=== PATIENT | male | born 1980 | race Caucasian/White ===

== ENCOUNTER → 2018-06-17 10:07 | Outpatient (CLI) | payer OTHER, SELFPAY ==
[2018-06-14 15:08] VITALS: BMI 41.3
--- NOTE | 2018-06-17 10:08 | RAD_ITS ---
STUDY: X-RAY - LEFT KNEE REASON FOR EXAM: Chronic knee pain, ACL repair years ago. TECHNIQUE: 4 view(s) of the knee. COMPARISON: None. FINDINGS: There are postoperative changes of the distal femur and proximal tibia from anterior cruciate ligament reconstruction. There are very small metallic foreign bodies in the medial proximal tibial diaphysis. Normal proximal tibiofibular articulation. Normal medial femorotibial compartment. Normal lateral femorotibial compartment. Normal patellofemoral articulation. There is mild chondrocalcinosis in the medial meniscus. RAD/Knee 4 or More Views IMPRESSION: Postoperative changes from anterior cruciate ligament reconstruction. Mild chondrocalcinosis in the medial meniscus. Electronically Signed: Valente Murillo MD at 14:00 EDT Tel , Service support ,
== END ==
PROVIDERS: Family Provider Internal Medicine; PCP Internal Medicine; Referring Provider Orthopaedic Surgery; Visit Provider Orthopaedic Surgery
DX: M25.562 Pain in left knee (principal)
CPT/HCPCS: 73564

== ENCOUNTER → 2018-06-18 10:19 | Outpatient (CLI) | payer OTHER, SELFPAY ==
[2018-06-14 15:08] VITALS: BMI 41.3
[2018-06-18 11:34] LABS: Absolute Lymphocyte Count 1.96 X10^3/ul (0.83-4.51); Absolute Neutrophil Count 2.5 X10^3/uL (2.0-7.7); Basophil# 0.01 X10^3/uL; Basophil% 0.2 % (0-1); Eosinophil# 0.08 X10^3/uL; Eosinophils% 1.6 % (0-5); Hematocrit 43.8 % (40-54); Hemoglobin 15.1 g/dl (13.0-16.5); Lymphocyte # 1.96 X10^3/ul (4.0); Lymphocyte % 40.2 % (19-41); Mean Corp Hgb Conc 34.5 g/gl (32-36); Mean Corpuscular Hgb 29.4 pg (27.0-32.0); Mean Corpuscular Volume 85.2 fL (80-94); Monocyte# 0.33 X10^3/uL; Monocyte% 6.8 % (0-10); Neutrophil # 2.49 X10^3/uL (2.7-7.7); Platelet Count 273 K/mm3 (150-450); RBC Distribution Width CV 12.5 % (11.6-14.6); RBC Distribution Width SD 38.4 fl (35.1-43.9); Red Blood Count 5.14 M/mm3 (4.6-6.2); White Blood Count 4.9 K/mm3 (4.4-11.0)
[2018-06-18 11:35] LABS: POSITIVE COUNT NO; POSITIVE DIFFERENTIAL NO; POSITIVE MORPHOLOGY NO
[2018-06-18 11:50] LABS: Hemoglobin A1c 4.8 % (4.2-6.3)
[2018-06-18 12:05] LABS: ALB/GLOB Ratio 1.3 RATIO (0.9-2.4); AST(SGOT) 26 U/L (15-37); Alanine Aminotransfer ALT/SGPT 51 U/L (16-61); Albumin, Serum 4.1 g/dL (3.2-5.0); Alkaline Phosphatase 61 U/L (45-117); Anion Gap 4 (5-15); BUN 15 mg/dL (7-18); BUN/Creat Ratio 14.9 RATIO (10-20); Calcium,Total 9.5 mg/dL (8.5-10.1); Chloride 108 mmol/L (98-107); Cholesterol 164 mg/dL (200); Creatinine, Serum 1.01 mg/dL (0.70-1.30); EST Glomerular Filtration Rate 88 mL/min (>60); Est Glom Filt Rate - Afr Amer 106 mL/min (>60); Globulin 3.2 g/dL (2.2-4.2); Glucose 91 mg/dL (74-106); High Density Lipoprotein 43 mg/dL; Potassium 4.2 mmol/L (3.5-5.1); Protein, Total 7.3 g/dL (6.4-8.2); Sodium Level 141 mmol/L (136-145); Triglycerides 94 mg/dL; Very Low Density Lipoprotein 19 mg/dL (5-40)
== END ==
PROVIDERS: Family Provider Internal Medicine; PCP Internal Medicine; Referring Provider Internal Medicine; Visit Provider Internal Medicine
DX: E66.01 Morbid (severe) obesity due to excess calories (principal); Z68.41 Body mass index [BMI] 40.0-44.9, adult
CPT/HCPCS: 36415; 80053; 80061; 83036; 85025

== ENCOUNTER → 2018-06-29 13:14 | Outpatient (CLI) | payer OTHER, SELFPAY ==
[2018-06-14 15:08] VITALS: BMI 41.3
--- NOTE | 2018-06-29 13:16 | MRI_ITS ---
STUDY: MRI LEFT KNEE REASON FOR EXAM: Left knee pain, prior ACL repair, no specific injury. TECHNIQUE: Standardized fat and water weighted pulse sequences were obtained in all 3 orthogonal planes. COMPARISON: Radiographs 06/17/2018. FINDINGS: Normal medial meniscus. Normal hyaline cartilage of the medial femorotibial compartment. Normal medial femoral condyle and tibial plateau. Normal medial collateral ligamentous complex (MCL). Normal distal semimembranosus, gracilis and semitendinosus tendons. Normal lateral meniscus. Normal hyaline cartilage of the lateral femorotibial compartment. Normal lateral femoral condyle and tibial plateau. Normal proximal tibiofibular articulation. Normal lateral collateral (fibular) ligament. Normal popliteus tendon. Normal biceps femoris tendon. The anterior cruciate ligament graft is intact (series 8 images 11, 12). Normal posterior cruciate ligament (PCL). Normal congruent patellofemoral articulation. There is a small chondral tear of the lateral patella facet near the median ridge (T2 axial image 9). Normal medial and lateral patellar retinaculum. Normal visualized quadriceps tendon. Normal patellar tendon. There is mild postoperative scarring in Hoffa's fat pad. There is a minimal volume of fluid in the knee joint. The soft tissues are unremarkable. There are postoperative changes of the distal femur and proximal tibia from anterior cruciate ligament reconstruction. MRI/Lower Ext Joint Only (Routine) IMPRESSION: Small chondral tear of the lateral patellar facet. Intact anterior cruciate graft. No demonstrated lateral meniscal tear. Electronically Signed: Valente Murillo MD at 9:03 EDT Tel , Service support ,
== END ==
PROVIDERS: Family Provider Internal Medicine; PCP Internal Medicine; Referring Provider Orthopaedic Surgery; Visit Provider Orthopaedic Surgery
DX: S83.282A Other tear of lateral meniscus, current injury, left knee, initial encounter (principal)
CPT/HCPCS: 73721

== ENCOUNTER → 2018-07-09 20:00 | Outpatient (CLI) | payer OTHER, SELFPAY ==
[2018-06-14 15:08] VITALS: BMI 41.3
[2018-07-09] MEDS: Zolpidem Tartrate 5 MG Tablet PO (21:50)
== END ==
PROVIDERS: Family Provider Internal Medicine; PCP Internal Medicine; Referring Provider Internal Medicine; Visit Provider Internal Medicine
DX: G47.10 Hypersomnia, unspecified (principal)
CPT/HCPCS: 95810

== ENCOUNTER → 2018-08-20 20:16 | Outpatient (CLI) | payer OTHER, SELFPAY ==
[2018-07-27 08:40] VITALS: BMI 40.4
[2018-08-20] MEDS: Zolpidem Tartrate 5 MG Tablet PO (21:00)
== END ==
PROVIDERS: Family Provider Internal Medicine; PCP Internal Medicine; Visit Provider Internal Medicine Critical Care Medicine
DX: G47.33 Obstructive sleep apnea (adult) (pediatric) (principal); G47.61 Periodic limb movement disorder
CPT/HCPCS: 95811

== ENCOUNTER → 2018-08-25 12:06 | Outpatient (CLI) | payer OTHER, SELFPAY ==
[2018-07-27 08:40] VITALS: BMI 40.4
== END ==
PROVIDERS: Family Provider Internal Medicine; PCP Internal Medicine; Visit Provider Nurse Practitioner Acute Care
DX: G47.33 Obstructive sleep apnea (adult) (pediatric) (principal)

== ENCOUNTER → 2018-08-26 15:12 | Outpatient (CLI) | payer OTHER, SELFPAY ==
[2018-07-27 08:40] VITALS: BMI 40.4
== END ==
PROVIDERS: Family Provider Internal Medicine; PCP Internal Medicine; Visit Provider Nurse Practitioner Acute Care
DX: G47.33 Obstructive sleep apnea (adult) (pediatric) (principal)

== ENCOUNTER 2018-10-19 02:24 | Emergency (ER) | payer OTHER, SELFPAY ==
[2018-10-19 02:26] VITALS: BP 157/94; PULSE 90; RESP 18; TEMP 37.2; O2SAT 99; BMI 40.8
[2018-10-19 03:04] LABS: Absolute Lymphocyte Count 1.98 X10^3/ul (0.83-4.51); Absolute Neutrophil Count 3.4 X10^3/uL (2.0-7.7); Basophil# 0.01 X10^3/uL; Basophil% 0.2 % (0-1); Eosinophils% 1.7 % (0-5); Hematocrit 39.7 % (40-54); Hemoglobin 13.8 g/dl (13.0-16.5); Lymphocyte # 1.98 X10^3/ul (4.0); Mean Corp Hgb Conc 34.8 g/gl (32-36); Mean Corpuscular Volume 86.3 fL (80-94); Mean Platelet Vol. 9.1 fl (6.2-12.0); Monocyte# 0.31 X10^3/uL; Monocyte% 5.3 % (0-10); Neutrophil % 58.5 % (47-70); POSITIVE COUNT NO; POSITIVE DIFFERENTIAL NO; POSITIVE MORPHOLOGY NO; Platelet Count 254 K/mm3 (150-450); RBC Distribution Width CV 13.1 % (11.6-14.6); RBC Distribution Width SD 41.3 fl (35.1-43.9); White Blood Count 5.8 K/mm3 (4.4-11.0)
[2018-10-19 03:14] LABS: ALB/GLOB Ratio 1.2 RATIO (0.9-2.4); AST(SGOT) 17 U/L (15-37); Alanine Aminotransfer ALT/SGPT 40 U/L (16-61); Alkaline Phosphatase 71 U/L (45-117); Anion Gap 9 (5-15); BUN 17 mg/dL (7-18); BUN/Creat Ratio 15.6 RATIO (10-20); Calcium,Total 9.8 mg/dL (8.5-10.1); Chloride 105 mmol/L (98-107); Creatinine, Serum 1.09 mg/dL (0.70-1.30); EST Glomerular Filtration Rate 80 mL/min (>60); Est Glom Filt Rate - Afr Amer 97 mL/min (>60); Globulin 3.2 g/dL (2.2-4.2); Glucose 122 mg/dL (74-106); Lipase 113 U/L (73-393); Potassium 3.4 mmol/L (3.5-5.1); Protein, Total 7.2 g/dL (6.4-8.2); Sodium Level 143 mmol/L (136-145)
[2018-10-19] MEDS: Ketorolac 30 MG/ML Syringe IV (03:18)
[2018-10-19] MEDS: 0.9% Normal Saline 1,000 ML 999 ML IV (03:18)
--- NOTE | 2018-10-19 03:26 | ED.DCSUM_ITS ---
- ER Visit Summary Date of Service: 10/19/18 Chief Complaint: Abdominal pain History of Present Illness: The patient is a 37 M who presents with abdominal pain. This began 4 hours ago. It was sudden. He describes it as both dull and burning. It severe and isolated to the right upper quadrant. No history of prior similar symptoms. No nausea vomiting diarrhea or fever. Physical Examination: Afebrile vitals normal No distress Moist mucous membranes Heart regular rate and rhythm Lungs are clear Abdomen soft Patient has right upper quadrant abdominal tenderness without guarding without rebound negative Conley's sign Test Results: CBC CMP and lipase are unremarkable. Emergency Department Course and Treatment: Patient was treated here with IV Toradol. He does not have a surgical abdomen. Laboratory studies and vitals are unremarkable. I discussed with him possible etiologies would include biliary colic. He will need further outpatient work-up such as a right upper quadrant ultrasound should symptoms continue however I do not believe there is an indication for emergent imaging. He does understand return for new or worsening symptoms otherwise to follow-up as an outpatient was discharged. Treatment Plan: [] Disposition: Discharge Impression: Right upper quadrant abdominal pain This note was generated with GoChongo dictation software. It may contain incorrect words, spelling, and punctuation that were not noted in review of the chart prior to signing ED Disposition - Plan for ED Patient: Referrals: Shmuel Harrison MD [Primary Care Provider] -
--- NOTE | 2018-10-19 03:28 | ED.DEP ---
ED Disposition - Plan for ED Patient: Instructions: ABDOMINAL PAIN, Unkown Cause, (Male) Referrals: Shmuel Harrison MD [Primary Care Provider] -
[2018-10-19 03:36] VITALS: BP 138/80; PULSE 74; RESP 16; O2SAT 100
== END 2018-10-19 03:37 | disposition home or self-care (01) ==
LOC: ED 03:13
PROVIDERS: Emergency Provider Emergency Medicine; Family Provider Internal Medicine; PCP Internal Medicine
DX: R10.11 Right upper quadrant pain (principal); I10 Essential (primary) hypertension; G43.909 Migraine, unspecified, not intractable, without status migrainosus; Z79.899 Other long term (current) drug therapy
CPT/HCPCS: 80053; 83690; 85025; 96374; 99283; J7030; A4216

== ENCOUNTER → 2018-10-22 08:05 | Outpatient (CLI) | payer OTHER, SELFPAY ==
[2018-10-20 08:15] VITALS: BMI 40.8
--- NOTE | 2018-10-22 08:06 | US_ITS ---
STUDY: ABDOMINAL ULTRASOUND - RIGHT UPPER QUADRANT REASON FOR VISIT: Male, 37 years old. 4 day history of right upper quadrant pain. TECHNIQUE: Ultrasound evaluation of the right upper quadrant was performed with real-time and static munguia-scale imaging. TECHNICAL QUALITY: Adequate. COMPARISON: None. FINDINGS: Liver: The liver is enlarged and measures 20.7 cm. There is increased echogenicity consistent with fatty infiltration. The bile ducts are within normal limits. There is hepatic color flow. The direction of portal flow is hepatopetal. There is no demonstrated mass lesion. Gallbladder: There is a contracted gallbladder. The gallbladder wall is thickened and measures 4.6 mm. There is a positive sonographic Conley's sign. There is no pericholecystic fluid. There are multiple echogenic structures within the gallbladder, consistent with multiple gallstones. Sludge is also seen within the gallbladder lumen. Common Bile Duct (C.B.D.): The common bile duct is dilated and measures 1.8 mm. Pancreas: Normal size of the head, body and tail of the pancreas. There is normal echogenicity of the pancreas. There is no demonstrated pancreatic mass or cyst. Right Kidney: Normal size of the right kidney. The right kidney measures 12.4 cm x 5.8 cm x 5.9 cm. Normal renal cortex. The right cortex measures 1.8 cm. There is no demonstrated renal mass or cyst. There is no right hydronephrosis. US/Abdomen Limited IMPRESSION: Hepatomegaly and fatty infiltration of the liver. Contracted stone filled gallbladder as well as sludge. Thickened gallbladder wall and dilated common bile duct. Electronically Signed: Frank Carrillo, at 12:28 EDT , Service support ,
== END ==
PROVIDERS: Family Provider Internal Medicine; PCP Internal Medicine; Referring Provider Nurse Practitioner Family; Visit Provider Nurse Practitioner Family
DX: R10.11 Right upper quadrant pain (principal)
CPT/HCPCS: 76705

== ENCOUNTER 2018-11-01 15:42 | Observation (INO) | payer OTHER, SELFPAY ==
[2018-10-28 14:44] VITALS: BMI 40.8
[2018-11-01] VITALS (12 sets, daily range): BP systolic 103–141; BP diastolic 51–91; PULSE 62–97; RESP 16–18; TEMP 36.1–37.3; O2SAT 92–100; BMI 40.4; BMI 40.1
--- NOTE | 2018-11-01 10:07 | EKG12_ITS ---
Test Reason : PREOP Blood Pressure : / mmHG Vent. Rate : 068 BPM Atrial Rate : 068 BPM P-R Int : 160 ms QRS Dur : 106 ms QT Int : 388 ms P-R-T Axes : 081 003 004 degrees QTc Int : 412 ms Normal sinus rhythm Normal ECG Confirmed by SHANTEL MIRZA, SABA ([id number]), purchasing expeditor CJ HAYNES ([id number]) on 11/03/2018 10:34:11 AM Referred By: Ryne Seth Confirmed By:SABA FUNES MD
--- NOTE | 2018-11-01 13:47 | PCM.HP.BLA ---
Problem List (1) Chronic cholecystitis Status: Chronic History and Physical Date of Admission: 11/01/18 Intake Vital Signs 10/28/18 Body Mass Index (BMI) 40.8 10/28/18 Height 6 ft 5 in 10/28/18 Weight: 345 lb 10/28/18 Body Mass Index (BMI) 40.8 10/28/18 Blood Pressure 133/84 H 10/28/18 Blood Pressure Location Rt brachial 10/28/18 Blood Pressure Position Sitting 10/28/18 Respiratory Rate 18 10/28/18 Pulse Rate 81 10/28/18 Pulse Source Monitor 10/28/18 Temperature 98.3 F 10/28/18 Pulse Ox 95 10/28/18 Oxygen Delivery Method room air Intake Visit Reasons: Gall Stones & Sludge US 10/22 [facility] Chief Complaint: f/u ER 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 Is patient in pain?: No Allergies Latex, Natural Rubber Allergy (Severe, Verified 10/28/18 14:42) swelling latex Allergy (Verified 10/28/18 14:42) Hives Medications amitriptyline 50 mg tablet 50 mg PO DAILY 09/30/18 [History Confirmed 10/28/18] fluticasone propionate 50 mcg/actuation nasal spray,suspension 1 spray INTRANASAL DAILY 09/30/18 [History Confirmed 10/28/18] galcanezumab-gnlm 120 mg/mL subcutaneous pen injector 120 mg SC QMONTH 09/30/18 [History Confirmed 10/28/18] ipratropium bromide 42 mcg (0.06 %) nasal spray 2 spray INTRANASAL TID-QID 09/30/18 [History Confirmed 10/28/18] levorphanol tartrate 2 mg tablet 2 mg PO Q8H 09/30/18 [History Confirmed 10/28/18] rizatriptan 10 mg tablet See Rx Instructions PO .COMPLEX 09/30/18 [History Confirmed 10/28/18] Amlodipine [Norvasc] 5 mg PO DAILY 10/19/18 [History Confirmed 10/28/18] Levorphanol Tartrate 2 mg PO TID 10/19/18 [History Confirmed 10/28/18] Rizatriptan Benzoate [Rizatriptan] 10 mg PO PRN PRN 10/19/18 [History Confirmed 10/28/18] amlodipine 10 mg tablet 10 mg PO DAILY #90 tab 10/20/18 [Rx Confirmed 10/28/18] hydrocortisone 2.5 % topical cream 1 applic TOPICAL BID #30 g 10/20/18 [Rx Confirmed 10/28/18] ciprofloxacin 500 mg tablet 500 mg PO BID #20 tab 10/28/18 [Rx Confirmed 10/28/18] PFSH Medical History Sleep apnea (Chronic) Chronic migraine (Chronic) Chronic back pain (Chronic) 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) Surgical History History of arthroscopy of right knee (Acute) History of laminectomy (Acute) History of left knee surgery (Acute) History of thumb surgery (Acute) Family History Other Arthritis Asthma Breast cancer CVA (cerebral vascular accident) Depression Diabetes Heart disease Hyperlipemia Kidney disease Myocardial infarction Parkinsons Social History (Updated 10/28/18 @ 15:32 by Ryne Seth MD) Smoking Status: Former smoker quit date: 04/06/98 Tobacco: How many years used: 3 alcohol intake: never substance use type: does not use what type of physical activity do you participate in: walking frequency: daily HPI HPI HPI: JASMYNE GUTIERREZ, is a 37 M who presents to the office today for HPI HPI Surgical H&P: Yes HPI: JASMYNE GUTIERREZ, is a 37 M who presents to the office today for gallstones. Patient has been having right upper quadrant pain intermittently. He says this especially happens with food. He does not report any nausea or vomiting. He is not have any fevers or chills. He said the last week he only had one episode of sharp pain in the right upper quadrant. There is no radiating to the back. ROS General General: No weight change, appetite, fatigue, colon cancer, breast cancer or weakness HEENT HEENT: No difficulty swallowing, eye injury, eye surgery, swollen glands or hoarseness Endo Endocrine: No thyroid disease, diabetes mellitus, thyroid cancer, Hair loss, heat intolerance or cold intolerance Skin Skin: No rash or changing moles Breast Breast: No left breast lump, right breast lump, nipple discharge, breast pain, abnormal mammogram, abnormal US or breast enlargement Musc Musculoskeletal: Yes back problems and arthritis; no rheumatoid arthritis, gout or joint pain Cardio Cardiovascular: Yes high blood pressure; no murmur, pacemaker, heart disease, atrial fibrillation, heart attack, heart stent, palpitations, shortness of breat with exertion or chest pain Psych Psychiatric: No depression, anxiety or hearing voices Resp Respiratory: No shortness of breath, Yes sleep apnea, No cough, No COPD, No asthma, No emphysema, No wheezing Gastro Gastrointestinal: Yes abdominal pain, No nausea or vomiting, No diarrhea, Yes constipation, No blood in stool, No acid reflux, No hemorrhoids, No ulcers, Yes gallbladder problem, No black,tarry stools Ernie Hematologic: No blood thinners, No blood disorders, No bleeding, No anemia, No blood clots Neuro Neurologic: No system reviewed and no additional complaints, except as docu, No as per HPI, No abnormal walking, No abnormal hearing, No abnormal movements, No abnormal speech, No behavioral changes, No burning sensations, No confusion, No seizure-like activity, No unsteadiness, No dizziness, No localized weakness, No frequent falls, No headache(s), No lack of coordination, No loss of vision, No memory loss, Yes numbness, No other visual disturbances, No radiating pain, No restless legs, No sensory deficit, No fainting, Yes tingling, No tremor(s), No weakness, No other Exam Const General: cooperative Orientation: alert, oriented x3 Chest Breast Palpation: No nipple discharge Resp Effort & Inspection: normal respiratory effort Auscultation: clear to auscultation bilaterally Cardio Rate: regular rate Rhythm: regular rhythm Heart Sounds: no murmurs GI Inspection: non-distended Palpation: soft, tender in the RUQ and Conley's sign positive Assessment & Plan Problems 1. Calculus of gallbladder with chronic cholecystitis without obstruction K80.10 Plan The patient had an ultrasound on October 22 which showed thickening of the gallbladder wall as well as cholelithiasis and sludge. Patient on that day had normal white count and normal LFTs. He says that for the last week he has been pain-free except for one episode of right upper quadrant pain. The patient likely has chronic cholecystitis due to the wall thickening and sludge. I will subscribe and ciprofloxacin until surgery is able to be performed. I advised him that in the meantime if he were to have any attacks lasting longer than a half an hour or nausea or vomiting or fevers or chills he should present to the emergency room. I discussed the procedure in detail with the patient. I discussed the risks, benefits, and alternatives of the procedure. I discussed the risks including but not limited to bleeding, infection, injury to surrounding organs such as the liver, bile duct, bowels. I did discuss the possibility of having to convert to an open procedure as well as the possibility that if any injuries occurred this may necessitate further surgery at a tertiary care center. Ryne Seth MD Pager: [facility] [address] [place] [address], [address] [place] [address] Office:
--- NOTE | 2018-11-01 14:05 | GALL_PTH ---
PATIENT: JASMYNE GUTIERREZ LOC: PCU U#:[id number] AGE/SX: 37/M ROOM: [facility] RE11/01/[address]: Dr. Ryne Seth MD : 1980 BED: 1 DIS: 11/02/2018 SPEC #: [id number] RECD: 11/01/18 16:28 STATUS: ELIZ BYERS #: [id number] BETINA: 11/01/18 14:[address]: Ryne Seth DEPT: SURGICAL PATHOLOGY RECD BY: Srinivas Mayers ENTERED: 11/02/18 11:08 SP TYPE: FREDDIE ROMAN DR: Dr. Adrianna Harrison MD Tissues: Gallbladder, NOS Procedures: Surgery Specimen Level III HEADER OPERATION: Laparoscopic, cholecystectomy with intraoperative cholangiography PRE-OP DIAGNOSIS: Calculus of gallbladder with chronic cholecystitis without obstruction K80.10 TISSUE SUBMITTED: Gallbladder MICROSCOPIC DIAGNOSIS Gallbladder: Chronic cholecystitis and cholelithiasis. SJ:nash 11/03/18 MICROSCOPIC DESCRIPTION Slides are reviewed. GROSS DESCRIPTION Received is one container labeled with the patient's name and designated gallbladder. The specimen consists of a gallbladder measuring 9 x 3 x 2.8 cm. The external surface is smooth and glistening. Focally, it is granular, hemorrhagic and contains cautery artifact. The lumen of the gallbladder contains yellow-green mucoid bile and multiple yellow calculi ranging in size 0.2 to 2.2 cm. The mucosa is bile-stained and without any mass lesions. The gallbladder wall averages 0.6 cm in thickness and is free of mass lesions. Buffing And Sueding Machine Operator sections of the gallbladder and the cystic duct are submitted in one cassette. / AM:nash 11/02/18 TC: 3 CPT: 56429
--- NOTE | 2018-11-01 14:10 | RAD_ITS ---
CLINICAL HISTORY: Male, 37 years old. Status post cholecystectomy. PROCEDURE: CHOLANGIOGRAM - interoperative FLUOROSCOPY TIME (if supplied): (0:55) minutes/seconds TECHNIQUE: 3 series of cine images were presented. The first contains 221 images. The second contains 6 images in the third contains 75 images. COMPARISON: CT the abdomen and pelvis, April 15, 2006 abdominal ultrasound, October 22, 2018. FINDINGS: The initial series of images demonstrates cannulization of the cystic duct stump with injection of contrast which fills the intra and extrahepatic ducts. There is no evidence of dilatation stricture or filling defect of the intra or extrahepatic ductal system. There is free spillage of contrast into the duodenum. The second series of images demonstrate injection of contrast with little change from the previous examination. The third set of images again demonstrate injection of contrast was free spillage into the duodenum. Please refer to the operative report for further details. RAD/Cholangiogram/ O R,Initial IMPRESSION: Intraoperative cholangiogram, as above. Electronically Signed: Domingo Krishna DO at 19:48 EDT Tel [phone], Service support ,
[2018-11-01] MEDS: Bupiv/Epi 0.25% 30 ML Vial (15:35)
--- NOTE | 2018-11-01 15:45 | PCM.OPRPT ---
Problem List (1) Chronic cholecystitis Status: Chronic Report of Operation Date of Procedure: 11/01/18 Pre-Operative Diagnosis: Chronic cholecystitis Post-Operative Diagnosis: Same Surgery/Procedure Performed:: Laparoscopic cholecystectomy with cholangiogram Description of Surgical Findings:: Large stone filled gallbladder with inflammation surrounding the gallbladder Specimen's removed: Gallbladder and contents Description of Procedure: After obtaining informed consent patient was brought back to the operating room. General anesthesia was induced. The abdomen was prepped and draped in usual sterile fashion. A small midline incision was made superior to the umbilicus and deepened to the level of fascia. The fascia was elevated and incised. Next the peritoneum was elevated and incised in the same fashion. Finger sweep was performed and the Khalil trocar was placed into the abdomen. The balloon was inflated. The abdomen was inflated to 15 mmHg. Next a camera was introduced into the abdomen and the abdomen was inspected. Next under direct visualization three 5-mm ports were placed one subxiphoid and 2 subcostal. Next the gallbladder was elevated and retracted toward the right shoulder. The peritoneum was stripped from the gallbladder. The gallbladder was very inflamed and adherent to the omentum. There was a small tear in the capsule of the liver medial to the gallbladder fossa from retraction. The infundibulum was located and retracted laterally. Next the triangle of Calot was dissected and the cystic duct and cystic artery were identified. Cholangiograms were performed. The Arellano clamp was used to clamp across the infundibulum and the catheter needle was inserted into the gallbladder. Under fluoroscopy contrast was instilled into the gallbladder and the common duct, cystic duct as well as proximal hepatic ducts were identified. There was good filling of the duodenum. There were no filling defects noted in the common bile duct. The clamp was removed as well as the needle and the infundibulum was grasped once more. Three hemolock clips were placed across the cystic duct. The cystic duct was then divided leaving 2 clips on the stump. The cystic artery was clipped and divided in the same fashion. The hook cautery was then used to take the gallbladder off of the gallbladder bed. Hemostasis was obtained. There was a small bleeding vessel in the infundibular area which was clipped and this stopped bleeding. Gallbladder fossa was irrigated and no active bleeding or bile leakage was noted. Next the camera switched to a 5 mm camera and introduced in the subxiphoid port. An [employer] bag was placed through the umbilical port and the gallbladder was placed into it. The gallbladder was then removed through the umbilical incision. The gallbladder fossa was inspected once more and noted to be hemostatic with no leaking bile. The abdomen was suctioned dry. The umbilical port was removed and using a GraNee needle and 0 Vicryl suture a [id number] suture was placed in the fascia at the umbilical port. The 5 mm ports were removed under direct visualization. The umbilical port site was irrigated local anesthetic was administered to all the incisions. All the incisions were closed with interrupted subcuticular 4-0 Monocryl sutures followed by Steri-Strips and dressings. The patient was awoken and taken to PACU in stable condition. - Admit VTE Documentation VTE Mechan Device Prophylaxis: SCD's
[2018-11-01] MEDS: 0.9% Normal Saline 1,000 ML 100 ML IV (18:17)
--- NOTE | 2018-11-01 18:58 | PN_ITS ---
Progress Note I was called to come see the patient due to intractable pain in PACU. I saw the patient in his hospital room. The patient is complaining of severe pain at the umbilicus. This is just below his large umbilical incision. He also says he is not been able to urinate but feels the urge to go. He is not complaining of any pain in his right upper quadrant. On physical exam his abdomen is soft but very tender at the umbilical incision. The right upper quadrant is soft and nontender. At this time I have low suspicion for bleeding as the patient is not tachycardic and he is not tender in any other areas except for around his incision. He may be having pain at the incision site due to his tolerance for pain medication as he is a chronic pain medicine user. I will keep close eye on his vital signs and if there is any change she will get a CT with IV contrast. Patient understands. Patient also is requesting straight cath so this will be done and this may explain his lower abdominal pain. If a large amount of urine is returned I will start him on Flomax. Ryne Seth MD Pager: [facility] [address] [place] [address], [address] [place] [address] Office:
--- NOTE | 2018-11-01 19:10 | NURSING ---
MD in room spoke about retention - bladder scanned at 549 - straight cathd patient per MD beltran at this time for 750. Pt tolerated well and stated that it improved his pain
[2018-11-01] MEDS: Ondansetron 4 MG/2 ML Vial IV (20:05)
[2018-11-01] MEDS: 0.9% NaCl Peripheral Flush Adult/Peds IV (20:05)
[2018-11-01] MEDS: Tamsulosin HCl 0.4 MG Capsule 0.8 MG PO (20:23)
[2018-11-01] MEDS: proMETHazine 25 MG/ML Syringe 12.5 MG IV (22:07)
[2018-11-01] MEDS: Docusate Sodium 100 MG Capsule PO (22:08)
[2018-11-02] MEDS: 0.9% Normal Saline 1,000 ML 100 ML IV (03:04)
[2018-11-02] MEDS: Morphine 2 MG/ML Syringe IV (03:05)
[2018-11-02 03:45] VITALS: BP 117/69; PULSE 90; RESP 16; TEMP 37.3; O2SAT 92
[2018-11-02] MEDS: 0.9% NaCl Peripheral Flush Adult/Peds IV (05:48)
[2018-11-02] MEDS: proMETHazine 25 MG/ML Syringe 12.5 MG IV (05:48)
[2018-11-02 05:51] VITALS: BP 122/74; PULSE 88; RESP 17; TEMP 37.2; O2SAT 92
[2018-11-02 06:54] LABS: Absolute Lymphocyte Count 0.93 X10^3/uL (0.83-4.51); Absolute Neutrophil Count 7.4 X10^3/uL (2.0-7.7); Eosinophil# 0.01 X10^3/uL; Eosinophils% 0.1 % (0-5); Hematocrit 40.2 % (40-54); Hemoglobin 13.6 g/dL (13.0-16.5); Lymphocyte # 0.93 X10^3/ul (4.0); Lymphocyte % 10.4 % (19-41); Mean Corp Hgb Conc 33.8 g/dL (32-36); Mean Corpuscular Hgb 29.7 pg (27.0-32.0); Mean Corpuscular Volume 87.8 fL (80-94); Mean Platelet Vol. 9.6 fl (6.2-12.0); Monocyte# 0.53 X10^3/uL; Monocyte% 5.9 % (0-10); NRBC Flagged by Analyzer 0 % (0-5); Neutrophil # 7.44 X10^3/uL (2.7-7.7); Neutrophil % 83.2 % (47-70); Platelet Count 263 K/mm3 (150-450); RBC Distribution Width CV 12.8 % (11.6-14.6); RBC Distribution Width SD 40.7 fl (35.1-43.9); Red Blood Count 4.58 M/mm3 (4.6-6.2)
[2018-11-02 07:25] LABS: Anion Gap 9 (5-15); BUN 10 mg/dL (7-18); BUN/Creat Ratio 9.8 RATIO (10-20); Calcium,Total 8.8 mg/dL (8.5-10.1); Chloride 105 mmol/L (98-107); Creatinine, Serum 1.02 mg/dL (0.70-1.30); EST Glomerular Filtration Rate 87 mL/min (>60); Est Glom Filt Rate - Afr Amer 105 mL/min (>60); Estimated Creatinine Clearance 123.75 ml/min; Glucose 101 mg/dL (74-106); Potassium 3.9 mmol/L (3.5-5.1); Sodium Level 141 mmol/L (136-145)
--- NOTE | 2018-11-02 08:42 | PCM.PN.SRG ---
Subjective: Patient had urinary retention which required Varner overnight. He also had vomiting overnight. He is not having any nausea this morning. He reports that pain is improved. - Physical Exam General: Alert, Oriented x3 Lungs: Normal air movement Abdomen: Soft, Non-Distended, Tender - Tender in the umbilical region Vital Signs Temp Pulse Resp BP Pulse Ox 99.0 F 88 17 122/74 H 92 11/02/18 05:51 11/02/18 05:51 11/02/18 05:51 11/02/18 05:51 11/02/18 05:51 Oxygen Flow Rate (L/min) 2 Oxygen Delivery Method Nasal Cannula Weight: 340 lb 6.299 oz Body Mass Index (BMI) 40.1 Intake and Output for Last 24 Hours 10/31/18 11/01/18 11/02/18 23:59 23:59 23:59 Intake Total 2670 / 2670 776 / 776 Output Total 1250 / 1250 1450 / 1450 Balance 1420 / 1420 -674 / -674 Laboratory Tests Past 24 Hrs 11/02/18 11/02/18 06:25 06:25 WBC 9.0 RBC 4.58 L Hgb 13.6 Hct 40.2 MCV 87.8 MCH 29.7 MCHC 33.8 RDW Std Deviation 40.7 RDW Coeff of Yasmine 12.8 Plt Count 263 MPV 9.6 Immature Gran % (Auto) 0.400 Neut % (Auto) 83.2 H Lymph % (Auto) 10.4 L Poinsett % (Auto) 5.9 Eos % (Auto) 0.1 Baso % (Auto) 0.0 Absolute Neuts (auto) 7.4 Absolute Lymphs (auto) 0.93 Nucleated RBC % 0 Sodium 141 Potassium 3.9 Chloride 105 Carbon Dioxide 27.0 Anion Gap 9 BUN 10 Creatinine 1.02 Estim Creat Clear Calc 123.75 Est GFR (MDRD) Af Amer 105 Est GFR (MDRD) Non-Af 87 BUN/Creatinine Ratio 9.8 L Glucose 101 Calcium 8.8 Medical Necessity - Tobacco Use Smoking Status: Former smoker Tobacco Use: Non-smoker Assessment/Plan All Active Problems (Last Reviewed 10/28/18 @ 14:40 by Heidy Mccracken) 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 Patient had a difficult night with nausea and vomiting as well as urinary retention requiring a Varner. He was given Flomax. The patient thinks he will be better if he can get up and walk around. He would like another voiding trial today. Varner will be removed later today and if he cannot urinate it will have to be reinserted and he was notified of this and he was still like to try voiding trial to avoid going home with a Varner. Patient would also like to try regular diet once he is up walking around. 2. Patient's hemoglobin is stable at 13. He is not having any pain or guarding in the rest of the abdomen. His only pain is at the umbilical incision site. 3. Plan for DC once the patient is tolerating a diet and voiding trial has occurred. Ryne Seth MD Pager: [facility] [address] [place] [address] [address] [place] [address] Office:
[2018-11-02] MEDS: Docusate Sodium 100 MG Capsule PO (09:01)
[2018-11-02] MEDS: amLODIPine 10 MG Tablet PO (09:01)
[2018-11-02 09:50] VITALS: BP 136/71; PULSE 93; RESP 16; TEMP 37.4; O2SAT 93
[2018-11-02] MEDS: Acetaminophen 325 MG Tablet 650 MG PO (10:28)
[2018-11-02 15:50] VITALS: BP 122/85; PULSE 92; RESP 18; TEMP 36.9; O2SAT 94
--- NOTE | 2018-11-02 16:03 | DCINST_ITS ---
Discharge Diet: Light diet - advance as tolerated Discharge Activity: Return to Normal Activity, May Not Drive - for 2-3 days or while taking narcotic pain medicataions., May Shower Lifting Restrictions: 20 lbs for 2 weeks Additional Activity Instructions:: Pain medication may cause nausea. You should typically eat light foods as you take your pain medications. Pain medication may also cause constipation. If this is a problem for you, please discuss with your doctor. Call your doctor if your incision/area has: Continuous Slow Oozing, Sudden Increased Bleeding, Increased Pain/ Swelling, Increased Redness, Foul Smelling Discharge, Fever of 101 or Higher Call your doctor if you observe: Fever of 101 or Higher Suture Line Care: Avoid Pulling/Pushing, Avoid Pinching/Bending Remove Dressing in (days):: 1 - Remove clear bandages tomorrow. Remove steri strips in 7-10 days Additional Dressing/Incision Instructions:: Leave operative bandaids on for 2 days. When you remove dressing, leave Steri-Strips on until your follow-up appointment, or until the Steri-Strips fall off on their own. Allergies/Adverse Reactions: Allergies Latex, Natural Rubber Allergy (Severe, Verified 10/29/18 08:38) swelling latex Allergy (Verified 10/29/18 08:38) Hives Medications to take at Discharge amitriptyline 50 mg tablet 50 mg PO QHS 09/30/18 fluticasone propionate 50 mcg/actuation nasal spray,suspension 1 spray INTRANASAL DAILY 09/30/18 galcanezumab-gnlm 120 mg/mL subcutaneous pen injector 120 mg SC QMONTH 09/30/18 ipratropium bromide 42 mcg (0.06 %) nasal spray 2 spray INTRANASAL TID-QID 09/30/18 rizatriptan 10 mg tablet See Rx Instructions PO .COMPLEX PRN 09/30/18 Levorphanol Tartrate 2 mg PO TID 10/19/18 amlodipine 10 mg tablet 10 mg PO DAILY #90 tab 10/20/18 hydrocortisone 2.5 % topical cream 1 applic TOPICAL BID #30 g 10/20/18 ciprofloxacin 500 mg tablet 500 mg PO BID #20 tab 10/28/18 Primary Care Physician: Adrianna Harrison MD [Primary Care Provider] - Test Results: Test results from this visit will be discussed in further detail at your follow- up appointment, if applicable. Please Follow Up With: Ryne Seth MD When: Please call to schedule 2 week follow up appointment. [phone]
== END 2018-11-02 16:04 | disposition home or self-care (01) ==
LOC: PCU 11-02 09:38
PROVIDERS: Admitting Provider Surgery; Family Provider Internal Medicine; PCP Internal Medicine; Referring Provider Surgery; Visit Provider Surgery
PROC: (CPT 47610; principal; 2018-11-01 13:45)
DX: K80.10 Calculus of gallbladder with chronic cholecystitis without obstruction (principal); I10 Essential (primary) hypertension; Z79.899 Other long term (current) drug therapy; Z87.891 Personal history of nicotine dependence; G43.909 Migraine, unspecified, not intractable, without status migrainosus; H91.92 Unspecified hearing loss, left ear; G25.81 Restless legs syndrome; G89.29 Other chronic pain; G47.33 Obstructive sleep apnea (adult) (pediatric)
CPT/HCPCS: 00790; 47563; 36415; 74300; 76000; 80048; 85025; 88304; 93005; 96361; 96374; 96375; 96376; 99218; J7030; J7120; A4216; G0378; G0379; J2405

== ENCOUNTER → 2019-02-24 17:08 | Outpatient (CLI) | payer OTHER, SELFPAY ==
[2018-12-14 06:23] VITALS: BMI 40.8
== END ==
PROVIDERS: Family Provider Internal Medicine; PCP Internal Medicine; Visit Provider Nurse Practitioner Acute Care
DX: G47.33 Obstructive sleep apnea (adult) (pediatric) (principal)

== ENCOUNTER → 2019-06-13 17:22 | Outpatient (CLI) | payer OTHER, SELFPAY ==
[2019-06-03 09:33] VITALS: BMI 40.8
[2019-06-13 18:37] LABS: Amphetamine Urine VISTA NEGATIVE (<1000 ng/mL); Barbiturate Urine VISTA NEGATIVE (< 200 ng/mL); Benzodiazepine Urine VISTA NEGATIVE (< 200 ng/mL); Cocaine Urine VISTA NEGATIVE (< 300 ng/mL); Ecstacy Urine VISTA NEGATIVE (< 500 ng/mL); Methadone Urine VISTA NEGATIVE (< 300 ng/mL); PCP Urine VISTA NEGATIVE (< 25 ng/mL); THC Urine VISTA NEGATIVE (< 50 ng/mL); Vista UDS pH Range 6
== END ==
PROVIDERS: PCP Internal Medicine; Referring Provider Anesthesiology Pain Medicine; Visit Provider Anesthesiology Pain Medicine
DX: F11.20 Opioid dependence, uncomplicated (principal)
CPT/HCPCS: 80307

== ENCOUNTER → 2019-07-01 10:47 | Outpatient (CLI) | payer OTHER, SELFPAY ==
[2019-07-01 10:28] VITALS: BMI 40.8
[2019-07-01 12:35] LABS: ALB/GLOB Ratio 1.2 RATIO (0.9-2.4); AST(SGOT) 15 U/L (15-37); Alanine Aminotransfer ALT/SGPT 28 U/L (16-61); Albumin, Serum 4.2 g/dL (3.2-5.0); Alkaline Phosphatase 69 U/L (45-117); Anion Gap 4 (5-15); BUN 11 mg/dL (7-18); BUN/Creat Ratio 11.2 RATIO (10-20); Calcium,Total 9.6 mg/dL (8.5-10.1); Chloride 103 mmol/L (98-107); Creatinine, Serum 0.98 mg/dL (0.70-1.30); EST Glomerular Filtration Rate 90 mL/min (>60); Est Glom Filt Rate - Afr Amer 109 mL/min (>60); Globulin 3.4 g/dL (2.2-4.2); Glucose 102 mg/dL (74-106); Potassium 3.8 mmol/L (3.5-5.1); Protein, Total 7.6 g/dL (6.4-8.2); Sodium Level 137 mmol/L (136-145)
== END ==
LOC: EPLAB 10:47 → BIMLAB 07-06 12:20
PROVIDERS: PCP Internal Medicine; Visit Provider Internal Medicine
DX: I10 Essential (primary) hypertension (principal)
CPT/HCPCS: 36415; 80053

== ENCOUNTER → 2019-09-21 08:54 | Outpatient (CLI) | payer OTHER, SELFPAY ==
[2019-08-23 10:00] VITALS: BMI 40.8
[2019-09-20 10:10] VITALS: BMI 40.8
--- NOTE | 2019-09-21 15:58 | NEURO ---
NCS and/or EMG Patient Report Ordering Doctor: Adrianna Harrison DATE OF SERVICE: 09/21/19 Jonathan Saldaña is a 38-year-old male presents for electrodiagnostic testing of the left upper limb. He reports weakness and numbness. Electrodiagnostic findings: The left median motor nerve was stimulated, demonstrating prolonged distal latency with reduced amplitude. However maximal stimulation was not given his patient was not able to tolerate the examination. A proximal response was not obtained. The test was then discontinued with no further nerves tested and no needle EMG performed. Electrodiagnostic assessment: This is an incomplete study. Based on the patient's poor tolerance for the examination, no conclusion can be reached.
== END ==
PROVIDERS: PCP Internal Medicine; Referring Provider Internal Medicine; Visit Provider Internal Medicine
DX: M25.532 Pain in left wrist (principal)
CPT/HCPCS: 95907

== ENCOUNTER 2019-10-11 06:46 | Day surgery (SDC) | payer OTHER, SELFPAY ==
[2019-09-20 10:10] VITALS: BMI 40.8
--- NOTE | 2019-09-20 10:19 | HP_ITS ---
Intake Vital Signs 09/20/19 Height 6 ft 5 in 09/20/19 Weight: 344 lb 09/20/19 BMI 40.8 09/20/19 BP 129/85 H 09/20/19 Blood Pressure Location Rt brachial 09/20/19 Position Sitting 09/20/19 Respiration 16 09/20/19 Pulse 77 09/20/19 Pulse Source Monitor 09/20/19 Temp 97.9 F 09/20/19 Temp Source Temporal 09/20/19 Pulse Oximetry (%) 97 09/20/19 Oxygen Delivery Method room air 09/20/19 BMI 40.8 Intake Visit Reasons: CSCOPE/ EGD Chief Complaint: Left Wrist Pain Pill Packer Required: No Is patient in pain?: No Allergies Latex, Natural Rubber Allergy (Severe, Verified 09/20/19 10:11) swelling latex Allergy (Verified 09/20/19 10:11) Hives EMGALITY Allergy (Uncoded 09/20/19 10:11) Rash at site Medications fluticasone propionate 50 mcg/actuation nasal spray,suspension 1 spray INTRANASAL DAILY 09/30/18 [History Confirmed 09/20/19] ipratropium bromide 42 mcg (0.06 %) nasal spray 2 spray INTRANASAL TID-QID 09/30/18 [History Confirmed 09/20/19] rizatriptan 10 mg tablet See Rx Instructions PO .COMPLEX PRN 09/30/18 [History Confirmed 09/20/19] Levorphanol Tartrate 2 mg PO TID 10/19/18 [History Confirmed 09/20/19] hydrocortisone 2.5 % topical cream 1 applic TOPICAL BID #30 g 10/20/18 [Rx Confirmed 09/20/19] pramipexole 0.5 mg tablet 0.5 mg PO QHS #30 tab 03/24/19 [Rx Confirmed 09/20/19] amlodipine 10 mg tablet 10 mg PO DAILY #90 tab 06/10/19 [Rx Confirmed 09/20/19] montelukast 10 mg tablet 10 mg PO QHS #90 tab 06/23/19 [Rx Confirmed 09/20/19] erenumab-aooe 70 mg/mL subcutaneous auto-injector 70 mg SC QMONTH 07/01/19 [History Confirmed 09/20/19] losartan 50 mg tablet 50 mg PO DAILY #90 tab 07/01/19 [Rx Confirmed 09/20/19] methylprednisolone 4 mg tablets in a dose pack See Rx Instructions PO PER PKG DIR #21 tab 08/23/19 [Rx Confirmed 09/20/19] PFSH Medical History Sleep apnea (Chronic) Chronic migraine (Chronic) Chronic back pain (Chronic) 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 Ryne Seth MD) Smoking Status: Former smoker quit date: 04/06/98 Tobacco: How many years used: 3 alcohol intake: never substance use type: does not use what type of physical activity do you participate in: walking frequency: daily HPI HPI HPI: JASMYNE GUTIERREZ, is a 38 M who presents to the office today for HPI HPI Surgical H&P: Yes HPI: JASMYNE GUTIERREZ, is a 38 M who presents to the office today for colonoscopy. The patient had a colonoscopy in 2013 and was found to have a tubular adenoma. Patient was recommended to have a colonoscopy in 5 years and he is 1 year overdue for this. He is not having any abdominal pain or blood in his stool. He has no family history of colon cancer. ROS General General: No weight change, appetite, fatigue, colon cancer, breast cancer or weakness HEENT HEENT: No difficulty swallowing, eye injury, eye surgery, swollen glands or hoarseness Endo Endocrine: No thyroid disease, diabetes mellitus, thyroid cancer, Hair loss, heat intolerance or cold intolerance Skin Skin: No rash or changing moles Musc Musculoskeletal: Yes back problems and arthritis; no rheumatoid arthritis, gout or joint pain Cardio Cardiovascular: Yes high blood pressure; no murmur, pacemaker, heart disease, atrial fibrillation, heart attack, heart stent, palpitations, shortness of breat with exertion or chest pain Psych Psychiatric: No depression, anxiety or hearing voices Resp Respiratory: No shortness of breath, Yes sleep apnea, No cough, No COPD, No asthma, No emphysema, No wheezing Gastro Gastrointestinal: No abdominal pain, No nausea or vomiting, No diarrhea, No constipation, No blood in stool, No acid reflux, No hemorrhoids, No ulcers, No gallbladder problem, No black,tarry stools Ernie Hematologic: No blood thinners, No blood disorders, No bleeding, No anemia, No blood clots Neuro Neurologic: Yes numbness, Yes tingling, No weakness Exam Const General: cooperative Orientation: alert, oriented x3 Resp Effort & Inspection: normal respiratory effort Auscultation: clear to auscultation bilaterally Cardio Rate: regular rate Rhythm: regular rhythm Heart Sounds: no murmurs GI Inspection: non-distended Palpation: soft, nontender Assessment & Plan Problems 1. History of adenomatous polyp of colon Z86.010 Plan The patient has a history of adenomatous polyp of the colon. He is due for colonoscopy. I explained endoscopy in detail to the patient. I explained the risks including but not limited to stroke or heart attack with anesthesia, perforation of the GI tract, bleeding, infection. I explained that any of these could necessitate further emergency surgery. The patient understands and all questions were answered sufficiently. The patient wishes to proceed with procedure. We discussed the current risks associated with COVID-19. While it is understood that there is a community spread of COVID-19, the risk of hai COVID-19 while at [facility] ([facility]) is very low; however, the risk cannot be completely mitigated because of the community spread of the disease. We discussed in detail the risk of exposure to and/or potential harm posed by the COVID-19 virus with having a surgery/procedure at this time versus the risk of delaying the surgery/procedure. It is not possible to know either the risk of delaying the surgery or procedure or chance of getting an infection with perfect accuracy, but a joint decision was made to proceed at this time with the scheduled surgery/procedure as indicated on the consent form. Patient was notified that we will need to comply with any screening or testing [facility] wishes to perform or that surgery may be delayed for any positive results. Ryne Seth MD Pager: [facility] [address] [place] [address], [address] [place] [address] Office: Orders Orders: Colonoscopy Today Z86.010 Coding Level of Care Code Off vis,est,level 3 Diagnoses History of adenomatous polyp of colon Z86.010 09/20/19 1019 <Electronically signed by Ryne grossman MD> Date _ Ryne Seth MD I have re-examined the patient. There are no clinical changes since date of exam.
[2019-09-23 15:35] VITALS: BMI 40.8
[2019-10-11 07:03] VITALS: BP 141/83; PULSE 69; RESP 16; TEMP 36.6; O2SAT 96; BMI 39.1
[2019-10-11] MEDS: Lactated Ringers 1,000 ML 100 ML IV (07:08)
[2019-10-11 08:15] VITALS: BP 111/56; BP 141/83; PULSE 64; RESP 16; TEMP 36.3; O2SAT 97
--- NOTE | 2019-10-11 08:18 | OP.COLON_ITS ---
Patient Name: Jonathan Saldaña Procedure Date: 10/11/2019 7:48 AM Date of : 1980 Age: 38 Procedure: Colonoscopy Indications: Surveillance: Personal history of adenomatous polyps on last colonoscopy 5 years ago Providers: Ryne Seth MD Referring MD: Adrianna Harrison MD Medicines: Monitored Anesthesia Care Patient Profile: This is a 38 year old male. Refer to note in patient chart for documentation of history and physical. Last Colonoscopy: 5 years ago. Complications: No immediate complications. Procedure: Pre-Anesthesia Assessment: - Prior to the procedure, a History and Physical was performed, and patient medications and allergies were reviewed. The patient's tolerance of previous anesthesia was also reviewed. The risks and benefits of the procedure and the sedation options and risks were discussed with the patient. All questions were answered, and informed consent was obtained. Prior Anticoagulants: The patient has taken no previous anticoagulant or antiplatelet agents. After reviewing the risks and benefits, the patient was deemed in satisfactory condition to undergo the procedure. After I obtained informed consent, the scope was passed under direct vision. Throughout the procedure, the patient's blood pressure, pulse, and oxygen saturations were monitored continuously. The colonoscope was introduced through the anus and advanced to the cecum, identified by appendiceal orifice and ileocecal valve. The colonoscopy was performed without difficulty. The patient tolerated the procedure well. The quality of the bowel preparation was good. Scope In: 7:58:09 AM Scope Withdrawal Time 0 hours 6 minutes 54 seconds Scope Out: 8:11:19 AM Total Procedure Duration Time 0 hours 13 minutes 10 seconds Findings: The entire examined colon appeared normal on direct and retroflexion views. Impression: - The entire examined colon is normal on direct and retroflexion views. - No specimens collected. Recommendation: - Discharge patient to home. - Resume previous diet. - Continue present medications. - Repeat colonoscopy in 10 years for screening purposes. Procedure Code(s): --- Professional --- 67593, Colonoscopy, flexible; diagnostic, including collection of specimen(s) by brushing or washing, when performed (separate procedure) Diagnosis Code(s): --- Professional --- Z86.010, Personal history of colonic polyps CPT copyright 2017 [employer]. All rights reserved. The codes documented in this report are preliminary and upon solar designer review may be revised to meet current compliance requirements. Ryne Seth MD 10/11/2019 8:17:40 AM This report has been signed electronically. Number of Addenda: 0 Note Initiated On: 10/11/2019 7:48 AM
--- NOTE | 2019-10-11 08:18 | OP.CCLET_ITS ---
10/11/2019 Adrianna Harrison MD [address] [place] [address] [place] [address] Re : Colonoscopy procedure for Jonathan Saldaña Dear Dr. Harrison This procedure was performed on Friday, October 11, 2019. My impressions and recommendations are as follows: Impressions : - The entire examined colon is normal on direct and retroflexion views. - No specimens collected. Recommendations : - Discharge patient to home. - Resume previous diet. - Continue present medications. - Repeat colonoscopy in 10 years for screening purposes. My findings are described in the full procedure note, which is enclosed. If I can be of further assistance, please feel free to contact me at Doctor phone number(s): , Work: . Sincerely, Ryne Seth MD 10/11/2019 8:17:40 AM This report has been signed electronically.
[2019-10-11 08:20] VITALS: BP 126/60; BP 141/83; PULSE 67; RESP 18; O2SAT 98
[2019-10-11 08:25] VITALS: BP 127/81; BP 141/83; PULSE 61; RESP 18; O2SAT 98
[2019-10-11 08:33] VITALS: BP 121/74; BP 141/83; PULSE 54; RESP 18; TEMP 36.4; O2SAT 99
[2019-10-11 08:47] VITALS: BP 141/83
== END 2019-10-11 08:50 | disposition home or self-care (01) ==
LOC: EN 06:48 → AC 06:48
PROVIDERS: Anesthesiology; PCP Internal Medicine; Referring Provider Internal Medicine; Visit Provider Surgery
PROC: 0DJD8ZZ Inspection of Lower Intestinal Tract, Via Natural or Artificial Opening Endoscopic (ICD-10-PCS; CPT 45378; principal; 2019-10-11 07:55)
DX: Z12.11 Encounter for screening for malignant neoplasm of colon (principal); Z86.010 Personal history of colon polyps; Z87.19 Personal history of other diseases of the digestive system; Z87.891 Personal history of nicotine dependence; Z91.040 Latex allergy status; G47.30 Sleep apnea, unspecified; M54.9 Dorsalgia, unspecified; G89.29 Other chronic pain; H91.92 Unspecified hearing loss, left ear; G43.909 Migraine, unspecified, not intractable, without status migrainosus
CPT/HCPCS: 45378; 87635; G2023; J7120; J2405; U0003

== ENCOUNTER → 2019-10-19 06:27 | Outpatient (CLI) | payer OTHER, SELFPAY ==
[2019-10-11 07:03] VITALS: BMI 39.1
--- NOTE | 2019-10-19 14:18 | NEURO ---
NCS and/or EMG Patient Report Ordering Doctor: Dmitry Polk DATE OF SERVICE: 10/19/19 Jonathan Saldaña presents with complaints of numbness and weakness in the left hand for the past several months. Electrodiagnostic findings: Left median motor nerve demonstrates prolonged distal latency with normal amplitude and reduced conduction velocity. Left ulnar motor responses within normal limits. Prolonged left median F-wave. Prolonged left median sensory latency at the wrist. Normal left ulnar and radial sensory responses. Needle EMG testing reveals no evidence of denervation in any muscles tested in the left upper limb. Motor unit action potentials were normal amplitude and duration. Electrodiagnostic impression: This is an abnormal study in the left upper limb. 1. Electrodiagnostic findings demonstrate left-sided median mononeuropathy. This consistent with a mild left carpal tunnel syndrome.
== END ==
PROVIDERS: PCP Internal Medicine; Referring Provider Internal Medicine; Visit Provider Internal Medicine
DX: R29.898 Other symptoms and signs involving the musculoskeletal system (principal); M25.532 Pain in left wrist
CPT/HCPCS: 95886; 95909

== ENCOUNTER → 2019-12-02 08:08 | Outpatient (CLI) | payer OTHER, SELFPAY ==
--- NOTE | 2019-12-02 08:09 | RAD_ITS ---
STUDY: X-RAY - LEFT WRIST REASON FOR EXAM: Male, 38 years old. WRIST PAIN, NO TRAUMA TECHNIQUE: 3 view(s) of the wrist were obtained. COMPARISON: None. FINDINGS: Normal visualized distal radius and ulna. Normal radiocarpal articulation. Normal distal radioulnar articulation. Normal carpal bones. Normal carpal articulations. Normal carpometacarpal articulation of the thumb. Normal second through fifth carpometacarpal articulations. Normal visualized metacarpal bones. The soft tissue structures are unremarkable. RAD/Wrist min 3 Views IMPRESSION: Normal x-ray examination of the wrist. Electronically Signed: Frank Carrillo, at 13:57 EDT , Service support ,
== END ==
PROVIDERS: PCP Internal Medicine; Referring Provider Orthopaedic Surgery; Visit Provider Orthopaedic Surgery
DX: G56.02 Carpal tunnel syndrome, left upper limb (principal)
CPT/HCPCS: 73110

== ENCOUNTER → 2020-01-24 15:38 | Outpatient (CLI) | payer OTHER, SELFPAY ==
[2019-12-30 14:58] VITALS: BMI 39.1
--- NOTE | 2020-01-24 16:00 | MRI_ITS ---
STUDY: MRI LUMBAR SPINE WITHOUT CONTRAST REASON FOR EXAM: Male, 39 years old. BACK AND BILAT LEG PAIN, HX PRIOR LAMINECTOMY TECHNIQUE: Standardized fat and water weighted pulse sequences were obtained in the sagittal and axial planes. COMPARISON: 03/28/2008 FINDINGS: T12-L1: Disc desiccation with loss of disc height but no disc protrusion, spinal stenosis, or neural foraminal stenosis. Normal lumbar lordosis. Mild levoscoliosis centered at L2/L3. Normal conus medullaris that terminates at the T12/L1. L1-2: Disc desiccation and loss of disc height but no disc protrusion, spinal stenosis, or neural foraminal stenosis. L2-3: Status post posterior decompression. No change in the mild broad disc protrusion which produces mild spinal stenosis and mild bilateral neural foraminal stenosis. L3-4: Status post posterior decompression. No change in the mild broad disc protrusion which produces mild spinal stenosis and mild bilateral neural foraminal stenosis. L4-5: Status post posterior decompression. Mild left facet hypertrophy. No change in the mild broad disc protrusion which produces mild spinal stenosis but moderate bilateral neural foraminal stenosis with abutment of the exiting L4 nerve roots bilaterally. L5-S1: Normal endplates. Normal disc height, hydration and morphology. Normal bilateral facet joints. Normal central canal and bilateral lateral recesses. Normal bilateral intervertebral neural foramina. Normal visualized sacral ala. Normal visualized paraspinous soft tissue structures. MRI/Spine Lumbar (Routine) IMPRESSION: No change from 03/28/2008. Electronically Signed: Kevin Cronin MD at 17:13 EDT Tel , Service support ,
== END ==
PROVIDERS: PCP Internal Medicine; Referring Provider Anesthesiology Pain Medicine; Visit Provider Anesthesiology Pain Medicine
DX: M54.9 Dorsalgia, unspecified (principal); M79.606 Pain in leg, unspecified
CPT/HCPCS: 72148

== ENCOUNTER → 2020-03-07 15:54 | Outpatient (CLI) | payer OTHER, SELFPAY ==
[2020-03-07 17:41] LABS: Amphetamine Urine VISTA NEGATIVE (<1000 ng/mL); Barbiturate Urine VISTA NEGATIVE (< 200 ng/mL); Benzodiazepine Urine VISTA NEGATIVE (< 200 ng/mL); Cocaine Urine VISTA NEGATIVE (< 300 ng/mL); Ecstacy Urine VISTA NEGATIVE (< 500 ng/mL); Methadone Urine VISTA NEGATIVE (< 300 ng/mL); PCP Urine VISTA NEGATIVE (< 25 ng/mL); THC Urine VISTA NEGATIVE (< 50 ng/mL); Vista UDS pH Range 5
== END ==
PROVIDERS: PCP Internal Medicine; Referring Provider Anesthesiology Pain Medicine; Visit Provider Anesthesiology Pain Medicine
DX: F11.20 Opioid dependence, uncomplicated (principal)
CPT/HCPCS: 80307

== ENCOUNTER 2020-03-13 17:09 | Emergency (ER) | payer OTHER, SELFPAY ==
[2020-03-13 16:40] VITALS: BMI 39.6
[2020-03-13 17:10] VITALS: BP 161/91; PULSE 81; RESP 16; TEMP 37.4; O2SAT 99; BMI 39.6
--- NOTE | 2020-03-13 18:08 | US_ITS ---
STUDY: VENOUS DOPPLER ULTRASOUND - LEFT LOWER EXTREMITY REASON FOR EXAM: Male, 39 years old. POSTERIOR LEFT CALF PAIN TECHNIQUE: Ultrasound evaluation of the deep vein system to include cooper-scale imaging and compression was performed. Cooper-scale imaging and Doppler sonographic evaluation, including duplex spectral analysis and qualitative color flow sonography, was performed. COMPARISON: None. FINDINGS: Common Femoral Vein: Normal compression, spontaneity and augmentation. Normal color Doppler. Common Femoral Vein/Greater Saphenous Junction: Normal compression, spontaneity and augmentation. Normal color Doppler. Femoral Proximal: Normal compression, spontaneity and augmentation. Normal color Doppler. Femoral Middle: Normal compression, spontaneity and augmentation. Normal color Doppler. Femoral Distal: Normal compression, spontaneity and augmentation. Normal color Doppler. Popliteal Vein: Normal compression, spontaneity and augmentation. Normal color Doppler. Posterior Tibial Vein: Normal compression, spontaneity and augmentation. Normal color Doppler. Peroneal Vein: Normal compression, spontaneity and augmentation. Normal color Doppler. US/Venous Duplex Imag/Limited/Uni IMPRESSION: Normal venous Doppler ultrasound of the left lower extremity. Electronically Signed: Zbigniew Burris, at 20:00 EST Tel , Service support ,
--- NOTE | 2020-03-13 19:21 | ED.VIS.GEN ---
History of Present Illness Chief Complaint: Lower Extremity Injury Narrative: Patient presents with left lower extremity pain that started yesterday and now somewhat improved. He has calf pain mostly. It is worse when he moves his cast or tries to stretch it or squeezes his calf. No known injury. He has no chest pain or shortness of breath no fever or chills. No rash in that region. Past Medical History - Allergies and Home Meds Allergies/Adverse Reactions: Allergies Latex, Natural Rubber Allergy (Severe, Verified 03/13/20 17:10) swelling latex Allergy (Verified 03/13/20 17:10) Hives EMGALITY Allergy (Uncoded 03/13/20 17:10) Rash at site Will be taking with Benadryl Primary Care Physician: Adrianna Harrison MD [Primary Care Provider] - Past Medical History: - - Hypertension Smoking Status: Former smoker Review of Systems All systems negative except as indicated General: Denies: Chills, Fever Cardiovascular: Denies: Chest pain, Palpitations Respiratory: Denies: Dyspnea, Cough Gastrointestinal: Denies: Abdominal pain, Nausea, Vomiting Musculoskeletal: Denies: Myalgias, Arthralgias Skin: Denies: Rash, Abscess Neurological: Denies: Headache, Weakness Psych: Denies: Depression Hematologic: Denies: Easy bruising, Easy bleeding Physical Exam Vital Signs/Narrative: Vital Signs Temp Pulse Resp BP Pulse Ox 03/13/20 17:10 99.4 F H 81 16 161/91 H 99 General: Well nourished, Well developed Head: Normocephalic, Atraumatic ENT: Moist mucous membranes Cardiovascular: Regular rate, Regular rhythm Respiratory: No distress, CTA bilaterally Abdomen: Soft, Nontender, Nondistended Back: Nontender, Normal Inspection. Negative for: CVA tenderness Extremities: - - There is tenderness over the left calf region, there is some muscle spasm in that region. He has no significant lower extremity edema. Pulses are intact extremity is warm. Skin: Normal color Psychological: Normal affect Diagnostic/Tx/Re-eval - Medical Decision Making Venous ultrasound is negative for DVT. This is likely a calf strain. We will treat as such. Patient was reassured. ED Disposition - Plan for ED Patient: Disposition: LEFT WITHOUT BEING SEEN Diagnosis: Pain of left calf Instructions: Treating?Strains and Sprains Referrals: Adrianna Harrison MD [Primary Care Provider] - 2 Days
[2020-03-13 19:25] VITALS: PULSE 82; RESP 15; O2SAT 97
[2020-03-13 19:29] VITALS: BP 130/95; PULSE 77; RESP 16; O2SAT 96
== END 2020-03-13 19:33 | disposition home or self-care (01) ==
PROVIDERS: Emergency Provider Emergency Medicine; PCP Internal Medicine
DX: M79.662 Pain in left lower leg (principal); I10 Essential (primary) hypertension; Z87.891 Personal history of nicotine dependence; Z91.040 Latex allergy status; Z88.8 Allergy status to other drugs, medicaments and biological substances
CPT/HCPCS: 93971; 99282

== ENCOUNTER 2020-04-10 05:54 | Day surgery (SDC) | payer OTHER, SELFPAY ==
[2020-03-26 15:18] VITALS: BMI 39.6
[2020-04-10 06:33] VITALS: BP 148/92; PULSE 61; RESP 16; TEMP 36.5; O2SAT 100; BMI 39.9
[2020-04-10] MEDS: Lactated Ringers 1,000 ML 100 ML IV (06:49)
--- NOTE | 2020-04-10 07:11 | HP.PCM_ITS ---
History and Physical Date of Admission: 04/10/20 Intake Intake Visit Reasons: hand pain Chief Complaint: Left ear pain Allergies Latex, Natural Rubber Allergy (Severe, Verified 02/07/20 10:54) swelling latex Allergy (Verified 02/07/20 10:54) Hives EMGALITY Allergy (Uncoded 02/07/20 10:54) Rash at site [facility] Medical History Sleep apnea (Chronic) Chronic migraine (Chronic) Chronic back pain (Chronic) 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) Surgical History Hx of cholecystectomy (Acute) History of left knee surgery (Acute) History of arthroscopy of right knee (Acute) History of laminectomy (Acute) History of thumb surgery (Acute) Family History Mother Hypertension High cholesterol Father Kidney disease Asthma Other Arthritis Breast cancer CVA (cerebral vascular accident) Depression Diabetes Heart disease Hyperlipemia Myocardial infarction Parkinsons Social History (Updated 03/05/20 @ 13:57 by Mehdi VALLE, PA) Smoking Status: Former smoker quit date: 04/06/98 Tobacco: How many years used: 3 alcohol intake: never substance use type: does not use what type of physical activity do you participate in: walking frequency: daily HPI hand pain: Details: Parts of this documentation were recorded by a scribe, this documentation accurately reflects the service provided and the decisions made by me, TORI Hamilton 03/05/20 1124. JASMYNE GUTIERREZ is a 39 year old M here today for left carpal tunnel, sign consent, surgery not scheduled yet. Patient had an injection on 12/02/2019 which lasted until just this month. Patient's last x-ray 12/02/2019. Patient would like to proceed with surgery d/t his spouse being healed from surgery. ROS Musc Reports system reviewed and no additional complaints, except as docu, Reports joint pain, Denies joint swelling, Reports numbness, Reports stiffness, Reports tingling Skin/Breast Denies system reviewed and no additional complaints, except as docu, Denies dry skin, Denies redness, Denies lesions, Denies new lesions, Denies non-healing lesions, Denies itching, Denies rash, Denies skin ulcer, Denies sores, Denies unusual bruising, Denies wounds Neuro Yes system reviewed and no additional complaints, except as docu, Yes numbness, Yes radiating pain, Yes tingling Ortho Exam General General: Yes no acute distress Right Wrist/Hand Skin/Wound: No Swelling, No Ecchymosis Left Wrist/Hand Skin/Wound: No Swelling, No Ecchymosis, Yes capillary refill normal, No erythema Left Wrist: Yes ROM-Extension 0-60, Yes ROM-Flexion 0-80, Yes ROM-Pronation 0- 80, Yes ROM-Supination 0-90, Yes Durken's Test and Yes Tinel's; no Loki's Test or no Thenar Atrophy Sensation: Radial: I, Ulnar: I, Median: D WRIST: No abnormalities on inspection of the left wrist. No localized or generalized swelling and no other skin changes. Patient is full range of motion of the wrist. He does have positive Tinel's and positive Durkan signs indicative of carpal tunnel. There is decreased sensation to light touch in the median nerve distribution. He has normal distal radial pulses normal capillary refill. Assessment & Plan Problems 1. Carpal tunnel syndrome of left wrist G56.02 Plan Patient presents the office today for left carpal tunnel syndrome. Patient has had carpal tunnel symptoms for quite a long time. He did have an injection back in November which she states was very effective until approximately 1 to 2 weeks ago where his symptoms of pain and paresthesias have returned and are worsening again. Patient did talk to the surgeon previously and received the injection to get him by while his recover from surgery and is now ready to proceed with surgical intervention. Risks and benefits of the surgery were discussed with patient including but not limited to blood loss, blood clot, infection, neurovascular injury, failure of procedure, loss of limb or loss of life from anesthesia. We did discuss COVID-19 risks which screening will not be part of his presurgery testing. All of his questions regarding the surgery were discussed including follow-up/rehabilitation. Patient also saw the surgeon today for any further information/questions or concerns. Patient can follow-up in our office in the meantime with any questions or concerns and we will see him as indicated postoperatively. This note was generated with [employer] software. It may contain incorrect words, spelling, and punctuation that were not noted in checking the note before signing. Coding Level of Care Code Off vis,est,level 3 Diagnoses Carpal tunnel syndrome of left wrist G56.02 I have re-examined the patient. There are no clinical changes since date of exam Procedure Criteria Procedure Type: Elective COVID Risk Discussion: The surgeon/proceduralist and patient have discussed in detail the risk of exposure to and/or potential harm posed by the COVID-19 virus with having a surgery/procedure at this time versus the risk of delaying the surgery/procedure. It is not possible to know either the risk of delaying the surgery or procedure or chance of getting an infection with perfect accuracy, but a joint decision was made between the patient and the surgeon/proceduralist to proceed at this time with the scheduled surgery/procedure as indicated on the consent form.
[2020-04-10] MEDS: Cefazolin 2 GM in 0.9% Normal Saline 100 ML IV (07:12)
--- NOTE | 2020-04-10 07:15 | DCINST_ITS ---
Discharge Diet: No Restrictions Keep extremity elevated above heart level: Operative Extremity Call your doctor if you observe: Shortness of breath, Chest pain Additional Instructions: Ice and elevate operative extremity next 72 hours. Keep dressing on clean and dry for 48 hours then may remove and allow warm soapy water to rinse over incision but do not submerge until sutures are out. Then apply bandaid over incision and change daily. encourage finger range of motion. Not lift more than 1/2 pound. Allergies/Adverse Reactions: Allergies Latex, Natural Rubber Allergy (Severe, Verified 04/10/20 06:29) swelling latex Allergy (Verified 04/10/20 06:29) Hives EMGALITY Allergy (Uncoded 04/10/20 06:29) Rash at site Will be taking with Benadryl Medications to take at Discharge fluticasone propionate 50 mcg/actuation nasal spray,suspension 1 spray INTRANASAL DAILY 09/30/18 ipratropium bromide 42 mcg (0.06 %) nasal spray 2 spray INTRANASAL TID-QID 09/30/18 Levorphanol Tartrate 2 mg PO 4X/DAY 10/19/18 erenumab-aooe 70 mg/mL subcutaneous auto-injector 70 mg SC QMONTH 07/01/19 lorazepam 1 mg tablet 1 mg PO BID PRN #3 tab 10/17/19 montelukast 10 mg tablet 10 mg PO QHS #90 tab 12/30/19 Amlodipine Besylate [Norvasc] 10 mg PO DAILY 04/02/20 Hydrocodone Bitart/Apap 5-325 [[place] 5MG-325MG] 1 - 2 tablet PO Q4H PRN PRN 5 Days #20 tablet 04/10/20 Losartan Potassium 50 mg PO DAILY 04/10/20 The following prescriptions were given: Hydrocodone Bitart/Apap 5-325 [[place] 5MG-325MG] 1 - 2 tablet PO Q4H PRN PRN 5 Days #20 tablet PRN Reason: Pain Score 6-10 Transmission Status: Sent to [facility] Primary Care Physician: Adrianna Harrison MD [Primary Care Provider] - Test Results: Test results from this visit will be discussed in further detail at your follow- up appointment, if applicable. Please Follow Up With: Dorian Aguilar DO - 2 weeks
[2020-04-10] MEDS: Bupiv/Epi 0.5% Mpf 30 ML Vial (07:30)
--- NOTE | 2020-04-10 07:34 | PCM.OPRPT ---
Report of Operation Date of Procedure: 04/10/20 Description of Surgical Findings:: Preoperative diagnosis; left carpal tunnel syndrome Postoperative diagnosis; same Procedure: Left open carpal tunnel release Anesthesia: Local with MAC Tourniquet time; 10 minutes 250 mm Hg Complications: None Indication for procedure; This is a 39-year-old male with long-standing symptoms consistent with carpal tunnel syndrome the patient did have electrodiagnostic evidence of this and has failed conservative treatment. Risks benefits and alternatives were reviewed including risks of bleeding infection nerve artery tissue damage need for further surgery and continued pain and symptoms, hypersensitivity to scar and Pillar pain. Procedure; The patient was met in the preoperative holding area the operative extremity was identified by both patient and physician and was marked the patient was met by anesthesia and brought back to the operating room and transferred to the operating table in the supine position. Aanesthesia was started. A well-padded tourniquet was placed on the operative upper extremity. The patient was prepped and draped in the usual sterile fashion. A timeout was called to ensure the proper patient procedure and extremity were being contemplated. 0.5 percent Marcaine with epinephrine was injected into the incisional area. An Esmarch was used to exsanguinate the extremity. The tourniquet was inflated to 250 mmHg. A midline incision was made with a 15 blade scalpel between the thenar and hypothenar eminence. This was carried down through the skin and subcutaneous tissue. Carrol retractors were then used, a deep blade scalpel was used to make a deep incision in the palmar aponeurosis. The carrol retractors were then placed deep to this and the transverse carpal ligament was identified a perforation was made with a scalpel and a Littler scissors were used to complete the release of the transverse carpal ligament distally under direct visualization with the tips facing ulnarly until the perivascular fat was reached. Then turning our attention proximally using a tension slide technique the proximal extent of the transverse carpal ligament was released . There was noted to be hourglass configuration to the median nerve and hypertrophy of the transverse carpal ligament without other findings. The wound was thoroughly irrigated and was closed with 4-0 prolene vertical mattress stitches. Dressing was applied in the form of xeroform 4 x 4, web roll and an gilberto wrap. Tourniquet was let down there is no intraoperative complications patient tolerated the procedure well and was transferred to the PACU. All counts were correct.
[2020-04-10 07:50] VITALS: BP 108/68; BP 122/70; PULSE 77; RESP 16; TEMP 36.2; O2SAT 93
[2020-04-10 07:55] VITALS: BP 109/70; BP 122/70; PULSE 60; RESP 16; O2SAT 94
[2020-04-10 08:00] VITALS: BP 114/70; BP 122/70; PULSE 59; RESP 16; O2SAT 94
[2020-04-10 08:08] VITALS: BP 112/76; BP 122/70; PULSE 64; RESP 16; TEMP 36.4; O2SAT 94
[2020-04-10 08:33] VITALS: BP 122/70
== END 2020-04-10 09:04 | disposition home or self-care (01) ==
LOC: SDC 05:54 → AC 05:56
PROVIDERS: PCP Internal Medicine; Referring Provider Orthopaedic Surgery; Visit Provider Orthopaedic Surgery
PROC: (CPT 64721; principal; 2020-04-10 07:00)
DX: G56.02 Carpal tunnel syndrome, left upper limb (principal); Z87.891 Personal history of nicotine dependence; Z91.040 Latex allergy status; M54.9 Dorsalgia, unspecified; G89.29 Other chronic pain; G47.30 Sleep apnea, unspecified; Z90.49 Acquired absence of other specified parts of digestive tract
CPT/HCPCS: 64721; 87426; C9803; J7120; J2405

== ENCOUNTER → 2020-08-02 21:00 | Outpatient (CLI) | payer OTHER, SELFPAY ==
[2020-07-11 15:11] VITALS: BMI 41.0
[2020-08-02] MEDS: Zolpidem Tartrate 5 MG Tablet PO (21:30)
== END ==
PROVIDERS: PCP Internal Medicine; Visit Provider Internal Medicine Critical Care Medicine
DX: G47.33 Obstructive sleep apnea (adult) (pediatric) (principal)
CPT/HCPCS: 95811

== ENCOUNTER 2020-10-19 07:19 | Day surgery (SDC) | payer OTHER, SELFPAY ==
[2020-07-11 15:11] VITALS: BMI 41.0
[2020-10-10 15:23] VITALS: BMI 41.0
[2020-10-19] VITALS (9 sets, daily range): BP systolic 113–139; BP diastolic 61–95; PULSE 58–67; RESP 14–16; TEMP 35.9–36.2; O2SAT 91–94; BMI 38.8
[2020-10-19] MEDS: Lactated Ringers 1,000 ML 100 ML IV (07:30)
--- NOTE | 2020-10-19 08:45 | SEP_PTH ---
PATIENT: JASMYNE GUTIERREZ LOC: [facility] U#:[id number] AGE/SX: 39/M ROOM: RE10/19/[address]: Dr. Duane Juarez MD : 1980 BED: DIS: 10/19/2020 SPEC #: [id number] RECD: 10/19/20 11:06 STATUS: ELIZ RETeagan #: [id number] BETINA: 10/19/20 08:[address]: Duane Juarez DEPT: SURGICAL PATHOLOGY RECD BY: Louise Randall ENTERED: 10/19/20 11:40 SP TYPE: SEPTUM OTHR DR: Dr. Adrianna Harrison MD Tissues: Nasal septum, NOS Procedures: Decalcification bone/plaque Surgery Specimen Level III HEADER OPERATION: Septoplasty, submucous inferior turbinate PRE-OP DIAGNOSIS: Deviation of nasal septum; hypertrophy of nasal turbinates, obstructive sleep apnea, vasomotor rhininitis TISSUE SUBMITTED: Nasal septal contents MICROSCOPIC DIAGNOSIS Nasal septum, septoplasty: Fragments of hyaline cartilage and bone with focal reparative/reactive change (clinically deviated septum). AM:shelby 10/24/2020 MICROSCOPIC DESCRIPTION Slides are reviewed. GROSS DESCRIPTION Received in fixative is one container labeled with the patient's name and designated nasal septal contents. The specimen consists of multiple fragments of cartilage and bone that in aggregate measure 5 x 3 x 0.3 cm. The entire specimen is submitted in two cassettes after decalcification. / SJ:shelby 10/19/20 TC: 5 CPT: 09830, 18452
[2020-10-19] MEDS: Lidocaine 1% /Epi 1:100 (50ml) 50 ML VIAL (09:56)
[2020-10-19] MEDS: Lidocaine 4% 50 ML Bottle (10:00)
[2020-10-19] MEDS: Oxymetazoline 0.05% 1 SPRAY SPRAY.BTL 15 SPRAY (10:00)
[2020-10-19] MEDS: Bacitracin 500 UNITS/GM PACKET (10:33)
--- NOTE | 2020-10-19 10:36 | PCM.OPRPT ---
Problems Associated Problem List Diagnoses (1) Deviated nasal septum: (2) Hypertrophy of both inferior nasal turbinates: Report of Operation Date of Procedure: 10/19/20 Pre-Operative Diagnosis: Deviated nasal septum, hypertrophy inferior nasal turbinates Post-Operative Diagnosis: Same Surgery/Procedure Performed:: Septoplasty, bilateral submucous resection of inferior nasal turbinates Description of Surgical Findings:: Archie is a 39-year-old male with chronic nasal obstruction partially alleviated with medical therapy which continued to complicate treatment for his obstructive sleep apnea. Examination showed significant deviation of the nasal septum and hypertrophy of the inferior nasal turbinates and surgical treatment for correction was offered for improved nasal patency and he was agreeable to proceed. The risks, alternatives, potential complications, and benefits were discussed at length and any questions answered to the patient and/or caregiver's satisfaction. Witnessed informed consent was obtained in the office, and the patient and/or caregiver was agreeable to proceed. Procedure went as follows: The patient was identified in the preoperative holding and brought to the operating room, was placed under general anesthesia and intubated. When appropriate anesthesia was obtained, pledgets soaked in a 50-50 mixture of oxymetazoline and 4% topical lidocaine were placed to decongest the nasal mucosa. The nasal septum was then injected beginning on the left side with 1% lidocaine with 100,000 epinephrine for a total of 5 mL. The pledgets were then removed and the left nasal cavity examined. There was noted to be significant nasal septal deviation to the left. Using a 15 blade scalpel, a hemitransfixion incision was then made on the left side and using the Lukasz elevator a subperichondrial/periosteal flap was elevated. The septum was then transected at the bony cartilaginous junction and a similar flap raised on the contralateral side. Using a Matthew forceps, the septum was then sharply transected superiorly and the deviated portions removed with a Saurabh forceps. Any inferior bony spur was then removed with a chisel allowing for midline placement of the nasal septum. The hemitransfixion incision was then closed with interrupted 4-0 chromic gut suture followed by a 4-0 plain quilting suture to reapproximate the mucosal flaps. Attention was then turned to the inferior nasal turbinates. Beginning on the left side, the anterior aspect of the inferior turbinate was then injected with 1% lidocaine with 100,000 epinephrine for a total of 2.5 mL bilaterally. Again beginning on the left side a 15 blade scalpel was used to create a stab incision in the anterior aspect of the turbinate. A caudal elevator was then used to elevate a submucosal plane. Using the microdebrider, the anterior bony and intervening submucosal tissue was then removed resulting in reduction of the inferior turbinate. Similar procedure was then completed on the contralateral side. Romero splints were then applied after coating with bacitracin ointment and secured to the columella with a single 3-0 Prolene suture. The patient was then returned to anesthesia, was revived and extubated having tolerated the procedure well without complications. Surgeon: Duane Juarez Type of Anesthesia: General Anesthesiologist: Milton Garsia Specimen's removed: septal and trubinate contents Drains: none Estimated Blood Loss (mL): 50 mL Fluids Replaced: 1200 mL Grafts/Implants Used: Romero splints Complications none Admit VTE Documentation VTE Present on Admission: No VTE Mechan Device Prophylaxis: SCD's VTE Pharm Prophylaxis ordered?: No
--- NOTE | 2020-10-19 10:40 | PCM.DC ---
Discharge Instructions Diet Discharge Diet: No restrictions Activity Discharge Activity: Return to Normal Activity Weight Bearing Status: Weight bearing as tolerated Dressing / Incision Call your doctor if your incision/area has: Sudden Increased Bleeding, Increased Pain/ Swelling and Foul Smelling Discharge Call your doctor if you observe: Fever of 101 or Higher and Uncontrolled pain Follow Up Care Please Follow Up With: Duane Juarez MD When: 1 week Test Results: Test results from this visit will be discussed in further detail at your follow-up appointment, if applicable. Discharge Plan Admission Primary Reason for Your Visit: Deviated nasal septum, nasal turbinate hypertrophy Attending Provider: Duane Juarez Primary Care Provider: Adrianna Harrison Discharge Orders/Prescriptions Prescriptions: New hydrocodone-acetaminophen 5-325 mg Tablet 1 tab PO Q6H PRN PRN (Reason: Pain Score 6-10) 5 Days Qty: 15 RF: 0 acetaminophen 500 mg Tablet 500 mg PO Q4H PRN PRN (Reason: Pain Score 1-5/10) Qty: 0 RF: 0 ibuprofen 200 mg Tablet 400 mg PO Q6H PRN PRN (Reason: Pain Score 4-10/10) Qty: 0 RF: 0 Continued ipratropium bromide 42 mcg (0.06 %) spray,non-aerosol 2 spray INTRANASAL TID-QID RF: 0 fluticasone propionate 50 mcg/actuation spray,suspension 1 spray INTRANASAL DAILY RF: 0 trazodone 50 mg tablet 50 mg PO QHS PRN (Reason: insomnia) Qty: 30 RF: 1 levorphanol tartrate 2 MG tablet 2 mg PO 4X/DAY RF: 0 losartan 50 mg tablet 50 mg PO DAILY RF: 0 rizatriptan 10 mg tablet See Rx Instructions PO .COMPLEX RF: 0 montelukast [Singulair] 10 mg tablet 10 mg PO QHS RF: 0 Aimovig Autoinjector 140 mg/mL auto-injector 140 mg SC QMONTH RF: 0 amlodipine 10 mg tablet 10 mg PO DAILY Qty: 90 RF: 1 Referrals / Follow Up: Adrianna Harrison MD [Primary Care Provider] - Disposition Disposition (needs filled in before D/C Order can be placed): Home, Self Care
== END 2020-10-19 13:15 | disposition home or self-care (01) ==
LOC: SDC 07:20 → AC 07:24
PROVIDERS: PCP Internal Medicine; Referring Provider Otolaryngology; Visit Provider Otolaryngology
PROC: (CPT 30520; principal; 2020-10-19 08:30)
DX: J34.2 Deviated nasal septum (principal); J34.3 Hypertrophy of nasal turbinates; J30.0 Vasomotor rhinitis; G47.33 Obstructive sleep apnea (adult) (pediatric); J30.9 Allergic rhinitis, unspecified
CPT/HCPCS: 30140; 30520; 88304; 88311; J7120; J2405

== ENCOUNTER → 2020-12-24 09:21 | Outpatient (CLI) | payer OTHER, SELFPAY ==
--- NOTE | 2020-12-26 10:34 | PFT ---
INTRODUCTION: The patient is a 40-year-old male that presents for pulmonary function studies secondary to a diagnosis of dyspnea. Respiratory therapy reported good patient effort. Bronchodilators were used during testing. INTERPRETATION: Forced expiration spirometry demonstrates no evidence of a large airways obstructive ventilatory defect. There was no significant response to aerosolized bronchodilators. Spirograms are of good quality and plateau normally. Body plethysmography was performed and reveals lung volumes to be within normal limits. Diffusing capacity by single breath CO is also within normal limits. IMPRESSION: Grossly normal pulmonary function studies.
== END ==
PROVIDERS: PCP Internal Medicine; Referring Provider Internal Medicine Critical Care Medicine; Visit Provider Internal Medicine Critical Care Medicine
DX: R06.00 Dyspnea, unspecified (principal)
CPT/HCPCS: 94060; 94726; 94729

== ENCOUNTER → 2021-01-30 12:12 | Outpatient (CLI) | payer OTHER, SELFPAY ==
[2021-01-30 14:00] LABS: Amphetamine Urine VISTA NEGATIVE (<1000 ng/mL); Barbiturate Urine VISTA NEGATIVE (< 200 ng/mL); Benzodiazepine Urine VISTA NEGATIVE (< 200 ng/mL); Cocaine Urine VISTA NEGATIVE (< 300 ng/mL); Ecstacy Urine VISTA NEGATIVE (< 500 ng/mL); Methadone Urine VISTA NEGATIVE (< 300 ng/mL); PCP Urine VISTA NEGATIVE (< 25 ng/mL); THC Urine VISTA NEGATIVE (< 50 ng/mL); Vista UDS pH Range 6
== END ==
PROVIDERS: PCP Internal Medicine; Referring Provider Anesthesiology Pain Medicine; Visit Provider Anesthesiology Pain Medicine
DX: F11.20 Opioid dependence, uncomplicated (principal)
CPT/HCPCS: 80307

== ENCOUNTER 2021-05-27 15:41 | Outpatient (CLI) | payer OTHER, SELFPAY ==
[2021-05-27 16:51] LABS: Anion Gap 5 (5-15); BUN 14 mg/dL (7-18); BUN/Creat Ratio 14.3 RATIO (10-20); Calcium,Total 9.8 mg/dL (8.5-10.1); Chloride 103 mmol/L (98-107); Creatinine, Serum 0.98 mg/dL (0.70-1.30); EST Glomerular Filtration Rate 90 mL/min (>60); Est Glom Filt Rate - Afr Amer 109 mL/min (>60); Glucose 96 mg/dL (74-106); Sodium Level 137 mmol/L (136-145)
== END 2021-05-27 23:59 | disposition home or self-care (01) ==
LOC: BIMLAB 15:41
PROVIDERS: PCP Internal Medicine; Visit Provider Internal Medicine
DX: I10 Essential (primary) hypertension (principal)
CPT/HCPCS: 36415; 80048

== ENCOUNTER 2021-06-21 10:01 | Outpatient (CLI) | payer OTHER, SELFPAY ==
--- NOTE | 2021-06-21 10:03 | ECHOD_ITS ---
Reason For Study: central sleep apnea Procedure This was a 2D Doppler, Color Flow transthoracic echocardiogram. Exam performed in department. Left Ventricle Normal LV size. The estimated ejection fraction is 60 %. No evidence for diastolic dysfunction. No regional wall motion abnormalities noted. Right Ventricle Normal RV size. Normal systolic function. Atria Normal left atrium. Normal right atrium. No doppler evidence for ASD. Mitral Valve There is no mitral valve stenosis. Trivial mitral valve insufficiency. Tricuspid Valve There is no tricuspid stenosis. Unable to estimate RV systolic pressure due to insufficient tricuspid regurgitant envelope. Trivial tricuspid valve insufficiency. Aortic Valve Trisinus/trileaflet aortic valve. There is no aortic stenosis. No aortic valve insufficiency. Pulmonic Valve There is no pulmonic valvular stenosis. No pulmonic valve insufficiency. Great Vessels Normal aortic root. Pericardium/Pleural No pericardial effusion. MMode/2D Measurements & Calculations LVIDd: 5.1 cm IVSd: 1.3 cm Ao root diam: 3.7 cm LVIDs: 3.2 cm LVPWd: 1.3 cm RVDd: 3.9 cm FS: 37.7 % LAV(MOD-bp): 67.0 ml LVAd ap4: 46.1 cm2 LVAd ap2: 43.3 cm2 LAV(MOD-bp) Indexed: 24.1 ml/m2 LVLd ap4: 10.2 cm LVLd ap2: 10.3 cm LAV(MOD-sp2): 69.4 ml EDV(MOD-sp4): 171.8 ml EDV(MOD-sp2): 151.1 ml LAV(MOD-sp4): 67.0 ml EDV(sp4-el): 177.0 ml EDV(sp2-el): 154.9 ml LVAs ap4: 27.4 cm2 LVAs ap2: 23.4 cm2 LVLs ap4: 8.9 cm LVLs ap2: 8.3 cm ESV(MOD-sp4): 73.8 ml ESV(MOD-sp2): 55.3 ml ESV(sp4-el): 71.6 ml ESV(sp2-el): 55.5 ml EF(MOD-sp4): 57.0 % EF(MOD-sp2): 63.4 % EF(sp4-el): 59.5 % SV(MOD-sp4): 98.0 ml SV(MOD-sp2): 95.8 ml SV(sp4-el): 105.3 ml LA dimension(2D): 4.5 cm LA A4 area: 22.9 cm2 RA A4 area: 15.2 cm2 Doppler Measurements & Calculations MV E max leandro: 94.1 cm/sec Lat Peak E' Leandro: 16.4 cm/sec Med Peak E' Leandro: 11.9 cm/sec MV A max leandro: 61.2 cm/sec E/E' lat: 5.8 E/E' med: 7.9 MV E/A: 1.5 Ao V2 max: 142.3 cm/sec LV V1 max: 130.2 cm/sec PA V2 max: 98.8 cm/sec Ao max P.1 mmHg LV V1 max P.8 mmHg TR max leandro: 214.5 cm/sec TR max P.4 mmHg ECHO/Echo Complete Interpretation Summary The estimated ejection fraction is 60 %. No evidence for diastolic dysfunction. Trivial mitral valve insufficiency. Ordering Physician: Srinivas Francois Referring Physician: Srinivas Francois Performed By: Zahida Todd RDCS
== END 2021-06-21 23:59 | disposition home or self-care (01) ==
LOC: CVS 10:02
PROVIDERS: PCP Internal Medicine; Referring Provider Internal Medicine; Visit Provider Internal Medicine
DX: R06.81 Apnea, not elsewhere classified (principal)
CPT/HCPCS: 93306

== ENCOUNTER 2021-07-05 20:46 | Outpatient (CLI) | payer OTHER, SELFPAY | END 2021-07-05 23:59 | disposition home or self-care (01) | LOC: SL 20:46 | PROVIDERS: PCP Internal Medicine; Referring Provider Internal Medicine; Visit Provider Internal Medicine | DX: G47.33 Obstructive sleep apnea (adult) (pediatric) (principal) | CPT/HCPCS: 95811 ==

== ENCOUNTER 2021-07-17 13:37 | Outpatient (CLI) | payer OTHER, SELFPAY | END 2021-07-17 23:59 | disposition home or self-care (01) | LOC: SL 13:37 | PROVIDERS: PCP Internal Medicine; Visit Provider Internal Medicine Critical Care Medicine | DX: Z00.00 Encounter for general adult medical examination without abnormal findings (principal) ==